=== PATIENT | female | born 1940 | race Caucasian/White ===

== ENCOUNTER 2019-07-20 13:47 | Inpatient (IN) | payer MEDICARE ==
[~2019-07-20] VITALS: Ht 154.9 cm; Wt 50.8 kg
--- NOTE | 2019-07-20 14:00 | NUR ---
Patient levy from home, c/o left hip pain trying to cathch her while falling. On room air, breathing evenly and unlabored. connected to the monitor and pulse ox. kept comfortable, will continue to monitor accordingly.
[2019-07-20] MEDS ORDERED: ONDANSETRON HCL/PF 4 MG/2 ML VIAL ONE (15:09)
[2019-07-20] MEDS ORDERED: MORPHINE SULFATE INJ 2 MG/ML DISP.SYRIN ONE (15:09)
[2019-07-20] MEDS ORDERED: ONDANSETRON HCL/PF - ER 4 MG/2 ML VIAL IV ONE (15:30)
[2019-07-20] MEDS ORDERED: MORPHINE SULFATE INJ 2 MG/ML DISP.SYRIN IV ONE (15:30)
[2019-07-20 15:43] LABS: BASOPHILS % (AUTO) 0.5 % (0.0-2.0); EOSINOPHILS % (AUTO) 0.3 % (0.0-6.0); HEMATOCRIT 42 % (33-45); LYMPHOCYTES # (AUTO) 0.9 /CMM (0.8-4.8); LYMPHOCYTES % (AUTO) 9.6 % (20.0-44.0); MEAN CORPUSCULAR HGB CONC 34 g/dl (31.0-36.0); MEAN CORPUSCULAR VOLUME 99 fL (82-100); MONOCYTES # (AUTO) 0.6 /CMM (0.1-1.30); MONOCYTES % (AUTO) 6.8 % (2.0-12.0); NEUTROPHILS # (AUTO) 7.8 /CMM (1.8-8.9); NEUTROPHILS % (AUTO) 82.8 % (43.0-81.0); PLATELET COUNT (AUTO) 237 /CMM (150-450); RED BLOOD CELL COUNT(AUTO) 4.24 MIL/uL (4.0-5.2); WHITE BLOOD COUNT (AUTO) 9.4 K/uL (4.3-11.0)
[2019-07-20 15:49] LABS: CALCIUM, SERUM 8.7 mg/dL (8.5-10.1); CREATININE 1.1 mg/dL (0.6-1.3); POTASSIUM 4.2 mmol/L (3.5-5.1)
--- NOTE | 2019-07-20 15:53 | NUR ---
CALLED [facility]TE [facility] PAGED MATERIAL HANDLER FOR CONSULT
--- NOTE | 2019-07-20 17:36 | NUR ---
Wheeled patient via gurney accompanied by RN and emt in no distress. RN at bedside to assume care.
[2019-07-20 17:50] VITALS: BP 167/87
--- NOTE | 2019-07-20 17:50 | NUR ---
Received patient via [employer]. Awake alet and oriented x4, pleasant. Admitted to MS l hip fracture. Patient oriented to room and educated to use call light. Noted with L arm skin tear covered with Kerlix. Patient refused picture at this time, afraid of bleeding. Patient needs F/C for comfor. Possible surgeryy tomorrow. NPO after midnight . Dinner provided. Pain medication given. IV line LAC , flushing well. Will endorse to next shift for RONALDO.
[2019-07-20] MEDS: MORPHINE SULFATE INJ 2 MG/ML DISP.SYRIN IV PRN ×2 (17:55→21:53)
[2019-07-20] MEDS ORDERED: ACETAMINOPHEN 325 MG TABLET PO PRN (18:00)
[2019-07-20] MEDS ORDERED: MAGNESIUM HYDROXIDE 30 ML UDC PO PRN (18:00)
[2019-07-20] MEDS ORDERED: ONDANSETRON HCL/PF 4 MG/2 ML VIAL IVP PRN (18:00)
[2019-07-20] MEDS ORDERED: Z GUARD REMEDY 2 OZ OINT TP PRN (18:00)
[2019-07-20] MEDS ORDERED: MAG HYDROX/AL HYDROX/SIMETH 30 ML UDC PO PRN (18:00)
--- NOTE | 2019-07-20 19:40 | NUR ---
MS RN OPENING NOTES RECEIVED PATIENT FROM MORNING SHIFT, ALERT AND ORIENTED X 3. VERBALLY RESPONSIVE AND ABLE TO FOLLOW DIRECTIONS. BREATHING REGULAR AND UNLABORED ON ROOM AIR. RIGHT AC G18 IV LINE INTACT AND PATENT, FLUSHING WELL WITH NO BLEEDING OR S/S OF INFILTRATION NOTED. DENIES SUICIDAL/HOMICIDAL IDEATION. COMPLAINED OF PAIN WHEN MOVING THE HIPS, NON-PHARMACOLOGICAL INTERVENTIONS PROVIDED. POSITION ON THE SIDE OF COMFORT. BED LOW AND LOCKED ON SEMI FOWLERS POSITION. CALL LIGHT IN REACH. WILL CONTINUE TO MONITOR.
[2019-07-20 20:00] VITALS: BP 137/68
[2019-07-20] MEDS ORDERED: AMLO2.5T4 PO (20:11)
[2019-07-20] MEDS ORDERED: ADAL40PE SQ (20:11)
[2019-07-20] MEDS ORDERED: AZAT50TA18 PO (20:11)
[2019-07-20] MEDS ORDERED: METH1TAB PO (20:11)
[2019-07-20] MEDS ORDERED: TRAV5DRO LEFTEYE (20:23)
[2019-07-20] MEDS ORDERED: ESTR10TA4 VG (20:23)
[2019-07-20] MEDS ORDERED: PRED5TAB PO (20:23)
[2019-07-20] MEDS ORDERED: BRIM5DRO2 OP (20:23)
--- NOTE | 2019-07-20 22:00 | NUR ---
MS RN NOTES COMPLAINED OF 9/10 LEFT HIP PAIN, MORPHINE 2MG GIVEN VIA IV PUSH. NON-PHARMACOLOGICAL INTERVENTIONS PROVIDED. VITAL SIGNS WNL. WILL CONTINUE TO MONITOR.
[2019-07-21] MEDS: IV D5/ 0.9% NACL 1,000 ML IV PRN (01:53)
[2019-07-21] MEDS: MORPHINE SULFATE INJ 2 MG/ML DISP.SYRIN IV PRN ×5 (01:53→22:49)
--- NOTE | 2019-07-21 06:25 | NUR ---
MS RN CLOSING NOTES PATIENT IN BED, ALERT AND ORIENTED X 3. AFEBRILE WITH NO S/S OF DISTRESS OBSERVED. RIGHT AC G18 IV LINE PATENT AND INFUSING WELL. COMPLAINED OF PAIN 9/10 LEFT HIP PAIN, NON-PHARMACOLOGICAL INTERVENTIONS PROVIDED. MORPHINE 2MG GIVEN VIA IV PUSH. BEE CATH INTACT DRAINING CLEAR YELLOW URINE 425CC OUTPUT. BED LOW AND LOCKED ON SEMI FOWLERS POSITION. CALL LIGHT IN REACH. WILL ENDORSE TO MORNING SHIFT FOR RONALDO.
--- NOTE | 2019-07-21 07:30 | NUR ---
MS RN RECEIVED ON BED,AWAKE,ALERT,ORIENTED X4,LEFT HIP FRACTURE,DENIESPAINAT THIS TIME, WILL MONITOR PATIENT.
[2019-07-21 07:57] LABS: BASOPHILS % (AUTO) 0.3 % (0.0-2.0); EOSINOPHILS % (AUTO) 0.5 % (0.0-6.0); HEMATOCRIT 39 % (33-45); HEMOGLOBIN 13.1 g/dL (11.5-14.8); LYMPHOCYTES # (AUTO) 1.4 /CMM (0.8-4.8); LYMPHOCYTES % (AUTO) 14.1 % (20.0-44.0); MEAN CORPUSCULAR HGB CONC 34 g/dl (31.0-36.0); MEAN CORPUSCULAR VOLUME 98 fL (82-100); MONOCYTES # (AUTO) 1.1 /CMM (0.1-1.30); MONOCYTES % (AUTO) 11.1 % (2.0-12.0); NEUTROPHILS # (AUTO) 7.4 /CMM (1.8-8.9); PLATELET COUNT (AUTO) 202 /CMM (150-450); RED BLOOD CELL COUNT(AUTO) 3.95 MIL/uL (4.0-5.2)
[2019-07-21 08:17] VITALS: BP 160/85
[2019-07-21 08:28] LABS: CALCIUM, SERUM 8.4 mg/dL (8.5-10.1); CREATININE 0.8 mg/dL (0.6-1.3); MAGNESIUM 2.1 mg/dL (1.8-2.4); PHOSPHORUS 3.2 mg/dL (2.5-4.9); POTASSIUM 3.7 mmol/L (3.5-5.1)
[2019-07-21 08:51] LABS: APPEARANCE,URINE SL CLOUDY (CLEAR); BILIRUBIN,URINE NEGATIVE (NEGATIVE); BLOOD, URINE TRACE Ery/uL (NEGATIVE); COLOR,URINE YELLOW (YELLOW); KETONES,URINE NEGATIVE (NEGATIVE); LEUKOCYTE ESTERASE ,URINE NEGATIVE (NEGATIVE); NITRITE, URINE NEGATIVE (NEGATIVE); PH,URINE 7.5 (5.0-8.0); PROTEIN,URINE NEGATIVE (NEGATIVE); UGLUCOSE NEGATIVE (NEGATIVE); UROBILINOGEN,URINE 0.2 EU/dL (0.2)
[2019-07-21 09:00] LABS: BACTERIA,URINE Few /HPF (None Seen); SQUAMOUS EPITHELIAL CELL,UR Many /HPF (None Seen)
[2019-07-21] MEDS ORDERED: Medication Not On Formulary EA (Brimonidine Tartrate/Timolol (Combigan Eye Drops) 5 ML) OP SCH (09:00)
--- NOTE | 2019-07-21 09:00 | NUR ---
MS NR NPO at this time, due meds given,tolerated well.
[2019-07-21 09:01] LABS: RBC,URINE 0-2 /HPF (0-2); URINE AMORPHOUS URATE Moderate /HPF (None Seen); WBC,URINE 0-2 /HPF (0-3)
[2019-07-21 09:02] LABS: MUCUS,URINE Many /LPF (None Seen)
[2019-07-21] MEDS: AZATHIOPRINE 50 MG TABLET PO SCH (09:30)
[2019-07-21] MEDS: predniSONE 5 MG TABLET PO SCH (09:30)
[2019-07-21] MEDS: AMLODIPINE BESYLATE 2.5 MG TABLET PO SCH (09:30)
--- NOTE | 2019-07-21 10:20 | NUR ---
ms rn gave morphine 2mg for pain 10/24, but accidentally trew the label,was not able to scan it.
--- NOTE | 2019-07-21 11:00 | NUR ---
ms rn called aldair to evaluate pt,will let patient eat,will have sx in am.
[2019-07-21 16:02] VITALS: BP 133/59
[2019-07-21] MEDS: TIMOLOL 0.5% SOLN OPHTH 5 ML BOTTLE OP SCH (18:00)
[2019-07-21] MEDS: BRIMONIDINE TARTRATE OPHT SOLN 5 ML BOTTLE OP SCH (18:00)
[2019-07-21] MEDS ORDERED: METHENAMINE MANDELATE 1 GM TABLET PO SCH (18:30)
--- NOTE | 2019-07-21 18:30 | NUR ---
ms rn on bed, no distress noted,was seen by aldair today.
--- NOTE | 2019-07-21 19:45 | NUR ---
RN OPEN NOTES PATIENT IS LAYING IN BED. BED IS IN LOWEST LOCKED POSITION WITH SIDE RAILS UP, SEMI FOWLERS. NO SOB/ ACUTE RESPIRATORY DISTRESS NOTED. NO COMPLAINTS OF PAIN AT THE MOMENT. CALL LIGHT IS WITHIN REACH. WILL CONTINUE TO MONITOR.
[2019-07-21 20:00] VITALS: BP 163/84
[2019-07-21] MEDS: LATANOPROST EYE DROP 0.005% 2.5 ML BOTTLE LEFTEYE SCH (21:02)
[2019-07-22] MEDS: MORPHINE SULFATE INJ 2 MG/ML DISP.SYRIN IV PRN ×3 (03:43→20:04)
[2019-07-22 05:27] VITALS: BP 146/80
[2019-07-22 06:23] LABS: BASOPHILS % (AUTO) 0.4 % (0.0-2.0); EOSINOPHILS % (AUTO) 1.3 % (0.0-6.0); HEMATOCRIT 38 % (33-45); LYMPHOCYTES # (AUTO) 1.8 /CMM (0.8-4.8); LYMPHOCYTES % (AUTO) 19.4 % (20.0-44.0); MEAN CORPUSCULAR HGB CONC 34 g/dl (31.0-36.0); MEAN CORPUSCULAR VOLUME 98 fL (82-100); MONOCYTES # (AUTO) 1.1 /CMM (0.1-1.30); MONOCYTES % (AUTO) 11.8 % (2.0-12.0); NEUTROPHILS # (AUTO) 6.3 /CMM (1.8-8.9); NEUTROPHILS % (AUTO) 67.1 % (43.0-81.0); PLATELET COUNT (AUTO) 180 /CMM (150-450); RED BLOOD CELL COUNT(AUTO) 3.86 MIL/uL (4.0-5.2); WHITE BLOOD COUNT (AUTO) 9.4 K/uL (4.3-11.0)
--- NOTE | 2019-07-22 06:56 | NUR ---
RN CLOSE NOTES PATIENT IS WATCHING TV IN BED AWAITING FOR PICK FOR OR. ON RA SATURATING AT 95%. NO SOB/ ACUTE RESPIRATORY DISTRESS NOTED. CALL LIGHT IS WITHIN REACH. BED IS IN LOWEST POSITION WITH SIDE RAILS UP, SEMI FOWLERS. ALL DUE MEDS GIVEN.
[2019-07-22 06:59] LABS: ALBUMIN 2.9 g/dL (3.4-5.0); BILIRUBIN,TOTAL 0.7 mg/dL (0.2-1.0); CREATININE 0.6 mg/dL (0.6-1.3); MAGNESIUM 1.9 mg/dL (1.8-2.4); PHOSPHORUS 2.6 mg/dL (2.5-4.9); POTASSIUM 3.5 mmol/L (3.5-5.1); TOTAL PROTEIN, SERUM 6.5 g/dL (6.4-8.2)
[2019-07-22] MEDS ORDERED: MIDAZOLAM HCL 2 MG/2ML VIAL ONE (07:04)
[2019-07-22] MEDS ORDERED: FENTANYL PF 250MCG/5ML AMPUL ONE (07:04)
[2019-07-22] MEDS ORDERED: methylPREDNISolone SOD SUCC 125 MG/2ML VIAL ONE (07:05)
[2019-07-22] MEDS ORDERED: FAMOTIDINE/PF INJ 20 MG/2 ML VIAL IV ONE (07:05)
[2019-07-22] MEDS ORDERED: BUPIVACAINE 0.5 % PF 150 MG/30 ML VIAL ONE (07:08)
[2019-07-22] MEDS ORDERED: ANESTHESIA TRAY IN PYXIS 1 EA TRAY MC ONE (07:08)
[2019-07-22] MEDS ORDERED: BACITRACIN 50000 UNITS/VIAL ONE (07:09)
[2019-07-22] MEDS ORDERED: CLINDAMYCIN 900 MG/6 ML VIAL ONE (07:35)
--- NOTE | 2019-07-22 08:00 | NUR ---
MS RN OPENING NOTES UPON ROUNDS, PT NOT IN THE ROOM SHE IS OUT TO THE OR FOR THE SURGERY. RECEIVED REPORT FROM NIGHT NURSE. AWAITING FOR PT TO COME BACK TO THE FLOOR.
[2019-07-22] MEDS: predniSONE 5 MG TABLET PO SCH (09:00)
[2019-07-22] MEDS: AZATHIOPRINE 50 MG TABLET PO SCH (09:00)
[2019-07-22] MEDS: AMLODIPINE BESYLATE 2.5 MG TABLET PO SCH (09:00)
[2019-07-22] MEDS: BRIMONIDINE TARTRATE OPHT SOLN 5 ML BOTTLE OP SCH (10:00)
[2019-07-22] MEDS: TIMOLOL 0.5% SOLN OPHTH 5 ML BOTTLE OP SCH (10:00)
--- NOTE | 2019-07-22 10:00 | NUR ---
BACK FROM SURGERY PT BACK FROM SURGERY S/P L HIP INTERMEDULLARY RODDING WITH DR. CHUENG. PT BROUGHT IN BY OR NURSE. PT IS AWAKE AND AOX4. NO CARDIAC OR RESP DISTRESS NOTED. RESPONDING TO QUESTIONS WELL. DRESSING NOTED ON L HIP AND L THOIGH. NO BLEEDING NOTED. DRESSING INTACT. PER DR. CHEUNG OKAY TO RESUME PREVIOUS PRE-OP ORDERS. WBAT WITH PT. PT WILL ALSO START ON LOVENOX AND CLINDAMYCIN. MED ORDERS FAXED TO PHARMACY BY OR NURSE. VS CHECKED T-97.6, P- 92, RR- 18, BP- 149/79, O2 SAT- 97% ON ROOM AIR. PT DENIES ANY PAIN OR DISCOMFORT AT THIS TIME.
[2019-07-22 16:00] VITALS: BP 104/40
[2019-07-22] MEDS: IV D5/ 0.9% NACL 1,000 ML IV PRN (16:58)
--- NOTE | 2019-07-22 19:30 | NUR ---
MS RN OPENING NOTE RECEIVED PATIENT IN BED. A/OX4. TOLERATING ROOM AIR, RESPIRATIONS ARE EVEN AND UNLABORED. NO S/S SOB NOTED. C/O OF PAIN IN LEFT HIP WILL ADMINISTER PAIN MEDICATION SOON RECEIVED REPORT, PATIENT AWARE. IN NO APPARENT DISTRESS. IV ACCESS IN RAC#18 RUNNING D5NS@75ML/HR. BEE CATHETER IS PRESENT, DRAINING TO GRAVITY, URINE IS YELLOW AND CLEAR. BED IS LOW AND LOCKED, HOB ELEVATED IN SEMI FOWLERS, SIDE RIALS UP X2, CALL LIGHT WITHIN REACH. WILL CONTINUE TO MONITOR.
--- NOTE | 2019-07-22 19:30 | NUR ---
MS RN CLOSING NOTES PT IN BED AWAKE AND AOX4. NO CARDIAC OR RESP DISTRESS NOTED. NO COMPLAINTS OF PAIN OR DISCOMFORT AT THIS TIME. DRESSING NOTED ON L HIP AND L THIGH. STILL NO BLEEDING NOTED. DRESSING INTACT. IV ACCESS NOTED ON R AC INTACT AND PATENT. FLUSHING WELL. SAFETY PRECAUTIONS IN PLACE. BED LOCKED AND IN LOW POSITION. SIDE RAILS UP. BED ALARM ON.
[2019-07-22 20:00] VITALS: BP 132/69
[2019-07-22] MEDS: CLINDAMYCIN 900 MG in IV D5W 50 ML IV SCH (20:03)
--- NOTE | 2019-07-22 20:14 | NUR ---
MS RN NOTE ADMINISTERED PRN MORPHINE 2MG FOR PAIN 8/10 IN LEFT HIP. WILL CONTINUE TO MONITOR.
[2019-07-22] MEDS: LATANOPROST EYE DROP 0.005% 2.5 ML BOTTLE LEFTEYE SCH (21:31)
--- NOTE | 2019-07-22 22:40 | NUR ---
MS RN NOTE CALLED FRONT DESK AUXILIARY MD CHET MOORE TO INFORM HIM THAT PATIENT WANTS TO CONTINUE TAKING HER ZOLOFT 50MG DAILY. IT WAS NOT REPORTED ON MED RECON AND SHE HAS NOT TAKEN IT SINCE FRIDAY. REQUESTING AN ORDER TO CONTINUE. TELEPHONE ORDER ZOLOFT 50MG DAILY. ORDER READ BACK, NOTED AND CARRIED OUT.
[2019-07-23] MEDS: ZOLPIDEM TARTRATE 5 MG TABLET PO PRN ×2 (00:09→22:55)
--- NOTE | 2019-07-23 00:09 | NUR ---
MS RN NOTE ADMINISTERED PRN AMBIEN 5MG PER PATIENT REQUEST FOR SLEEP. WILL CONTINUE TO MONITOR.
[2019-07-23 06:17] LABS: BASOPHILS % (AUTO) 0.1 % (0.0-2.0); HEMATOCRIT 35 % (33-45); HEMOGLOBIN 11.7 g/dL (11.5-14.8); LYMPHOCYTES # (AUTO) 0.9 /CMM (0.8-4.8); LYMPHOCYTES % (AUTO) 7.5 % (20.0-44.0); MEAN CORPUSCULAR HGB CONC 33 g/dl (31.0-36.0); MEAN CORPUSCULAR VOLUME 100 fL (82-100); MONOCYTES # (AUTO) 1.3 /CMM (0.1-1.30); MONOCYTES % (AUTO) 11.1 % (2.0-12.0); NEUTROPHILS # (AUTO) 9.5 /CMM (1.8-8.9); NEUTROPHILS % (AUTO) 81.3 % (43.0-81.0); PLATELET COUNT (AUTO) 191 /CMM (150-450); RED BLOOD CELL COUNT(AUTO) 3.52 MIL/uL (4.0-5.2); WHITE BLOOD COUNT (AUTO) 11.7 K/uL (4.3-11.0)
--- NOTE | 2019-07-23 06:37 | NUR ---
MS RN CLOSING NOTE PATIENT IN BED. A/OX4. REMAINS TOLERATING ROOM AIR, RESPIRATIONS ARE EVEN AND UNLABORED. NO SOB NOTED. MORPHINE ADMNISTERED TO MANAGE PAIN. NO DISTRESS NOTED. IV ACCESS MAINTAINED IN RAC#18 RUNNING D5NS@75ML/HR. BEE CATHETER IS PRESENT, DRAINING TO GRAVITY, URINE IS YELLOW AND CLEAR OUTPUT 500. BED REMAINS LOW AND LOCKED, HOB ELEVATED IN SEMI FOWLERS, SIDE RIALS UP X2, CALL LIGHT WITHIN REACH. WILL ENDORSE TO NEXT SHIFT.
[2019-07-23 06:42] LABS: CALCIUM, SERUM 8.5 mg/dL (8.5-10.1); CREATININE 0.7 mg/dL (0.6-1.3); POTASSIUM 3.6 mmol/L (3.5-5.1)
[2019-07-23 08:00] VITALS: BP 155/87
[2019-07-23] MEDS: IV D5/ 0.9% NACL 1,000 ML IV PRN (08:39)
[2019-07-23] MEDS: BRIMONIDINE TARTRATE OPHT SOLN 5 ML BOTTLE OP SCH (08:40)
[2019-07-23] MEDS: CLINDAMYCIN 900 MG in IV D5W 50 ML IV SCH (08:40)
[2019-07-23] MEDS: ENOXAPARIN SODIUM 40 MG/0.4 ML DISP.SYRIN SQ SCH (08:40)
[2019-07-23] MEDS: TIMOLOL 0.5% SOLN OPHTH 5 ML BOTTLE OP SCH (08:41)
[2019-07-23] MEDS: AZATHIOPRINE 50 MG TABLET PO SCH (08:41)
[2019-07-23] MEDS: AMLODIPINE BESYLATE 2.5 MG TABLET PO SCH (08:41)
[2019-07-23] MEDS: SERTRALINE HCL 50 MG TABLET PO SCH (08:41)
[2019-07-23] MEDS: predniSONE 5 MG TABLET PO SCH (08:43)
[2019-07-23] MEDS: HYDROCODONE/APAP 5/325MG 1 EACH TABLET PO PRN ×2 (09:45→20:20)
[2019-07-23 16:00] VITALS: BP 144/80
--- NOTE | 2019-07-23 18:46 | NUR ---
MS RN END OF SHIFT SUMMARY PT IS A/O X4, AFEBRILE. NON-MONITORED, VSS. TOLERATING RA. RESPIRATIONS ARE EVEN AND UNLABORED, NOT IN ANY ACUTE DISTRESS NOTED. +FLATUS, NO BM DURING SHIFT. BEE REMOVED, PT IS CONTINENT, USES BC. PT EVAL DONE W/ FWW. DRESSING TO LEFT HIP INCISION KEPT CDI. SCDS IN PLACE. ALL NEEDS MET AND RENDERED. SAFETY MEASURES ARE IN PLACE. CALL LIGHT IS LEFT WITHIN REACH. WILL MONITOR AND CONTINUE POC.
[2019-07-23 20:00] VITALS: BP 160/81
--- NOTE | 2019-07-23 20:00 | NUR ---
MS/RN OPENING NOTES RECEIVED PATIENT IN BED, AWAKE, ALERT AND ABLE TO VERBALIZE NEEDS, ON ROOM AIR WITH RESPIRATIONS EVEN AND UNLABORED. REPORTED AND VERBALIZED PAIN OF 7/10 IN LEFT HIP, NORCO 5-325 MG PO NEEDED MEDICATION AND REPORTED NO BM FOR THE PAST 3 DAYS . MOM WILL BE GIVEN FOR CONSTIPATION, DISCUSSED EYE DROPS MEDICATION AND LATANPROST TO BE GIVEN TONIGHT. BED LOCKED,CALL LIGTHS WITHIN REACH.PROVIDED FLUIDS. WILL MONITOR. IV ACCESS RIGHT AC HEPLOCK.
[2019-07-23] MEDS: LATANOPROST EYE DROP 0.005% 2.5 ML BOTTLE LEFTEYE SCH (22:00)
--- NOTE | 2019-07-23 23:05 | NUR ---
MS/RN NOTES PATIENT REPORTED UNABLE TO SLEEP AND REQUESTED MEDICATION AMBIEN 5 MG , TO MONITOR SLEEP EFFECTIVENESS.
--- NOTE | 2019-07-24 00:12 | NUR ---
MS/RN NOTES PATIENT REQUESTED MEDICATION TO HELP HER RELAX, NEEDED XANAX GIVEN BY MOUTH. PATIENT TOLERATED WITH WATER. HOB ELEVATED, ABLE TO SWALLOW.
--- NOTE | 2019-07-24 06:32 | NUR ---
MS/RN CLOSING NOTES PATIENT ABLE TO SLEEP DURING THE NIGHT, ALERT , ORIENTED X3, ABLE TO VERBALIZE NEEDS. ATTENDED TO ALL NEEDS, COMPLIANT TO MEDICATION. ON PAIN MANAGEMENT MONITORING AND WITH RELIEF. SELF MOTIVATED. BED LOCKED CALL LIGHTS WITHIN REACH. WILL MONITOR. WILL ENDORSE TO AM RN FOR RONALDO.
[2019-07-24] MEDS ORDERED: ENOX40DI SQ (07:37)
--- NOTE | 2019-07-24 08:00 | NUR ---
MS RN OPENING NOTES RECEIVED PATIENT IN BED, AWAKE, CONSCIOUS, COOPERATIVE, A/O X4, BREATHING AT ROOM AIR, NO SIGNS OF RESPIRATORY DISTRESS, RAC 18G SL, S/P LEFT FRUCTURE, SIDE RAILS UP FOR SAFETY.
[2019-07-24] MEDS: SERTRALINE HCL 50 MG TABLET PO SCH (08:29)
[2019-07-24 08:30] VITALS: BP 143/87
[2019-07-24] MEDS: AZATHIOPRINE 50 MG TABLET PO SCH (08:30)
[2019-07-24] MEDS: AMLODIPINE BESYLATE 2.5 MG TABLET PO SCH (08:30)
[2019-07-24] MEDS: BRIMONIDINE TARTRATE OPHT SOLN 5 ML BOTTLE OP SCH (08:32)
[2019-07-24] MEDS: TIMOLOL 0.5% SOLN OPHTH 5 ML BOTTLE OP SCH (08:32)
[2019-07-24] MEDS: predniSONE 5 MG TABLET PO SCH (08:40)
[2019-07-24] MEDS: ENOXAPARIN SODIUM 40 MG/0.4 ML DISP.SYRIN SQ SCH (08:41)
[2019-07-24] MEDS: HYDROCODONE/APAP 5/325MG 1 EACH TABLET PO PRN (11:02)
[2019-07-24] MEDS ORDERED: LORAZEPAM 0.5 MG TABLET PO ONE (12:00)
--- NOTE | 2019-07-24 15:45 | NUR ---
MS RN NOTES DISCHARGED PATIENT VIA AMBULANCE, IN STRETCHER, AWAKE, COOPERATIVE, CONSCIOUS, BREATHING AT ROOM AIR, NO SIGNS OF RESPIRATORY DISTRESS, LEFT ARM WITH DRY WOUNDS COVERED WITH GAUZE, LEFT HIP FRACTURE, S/P IM RODDING, NO SIGNS OR PRESENCE OF BLEEDING.
== END 2019-07-24 15:35 | DRG 481 ==
LOC: ER 13:49 → MED 16:49
PROVIDERS: ADMIT Family Medicine; ATTEND Family Medicine
PROC: 0QS706Z Reposition Left Upper Femur with Intramedullary Internal Fixation Device, Open Approach (ICD-10-PCS; principal; 2019-07-22)
DX: S72.142A Displaced intertrochanteric fracture of left femur, initial encounter for closed fracture (principal); K51.90 Ulcerative colitis, unspecified, without complications; E44.0 Moderate protein-calorie malnutrition; W18.30XA Fall on same level, unspecified, initial encounter; Y92.9 Unspecified place or not applicable; I10 Essential (primary) hypertension; R73.9 Hyperglycemia, unspecified; M19.90 Unspecified osteoarthritis, unspecified site; I48.0 Paroxysmal atrial fibrillation; Z88.1 Allergy status to other antibiotic agents; Z98.890 Other specified postprocedural states; Z87.891 Personal history of nicotine dependence; Z90.710 Acquired absence of both cervix and uterus; Z80.1 Family history of malignant neoplasm of trachea, bronchus and lung; Z80.8 Family history of malignant neoplasm of other organs or systems; Z79.899 Other long term (current) drug therapy; F43.9 Reaction to severe stress, unspecified; M06.9 Rheumatoid arthritis, unspecified
CPT/HCPCS: 36415; 71045-TC; 73020; 73502; 80048-TC; 80053-TC; 80061-TC; 81000-TC; 82962-TC; 83735-TC; 84100-TC; 85025-TC; 85730-TC; 86850-TC; 87081-TC; 93307-TC; 97110-TC; 97116-TC; 97530-TC; A6209; C1713; G0378; J1650; J2250; J2270; J2405; J2704; J2765; J2930; J3010; J3490; J7042; J7060; J7500; J7512

== ENCOUNTER 2021-08-04 15:07 | Inpatient (IN) | payer MEDICARE, BC ==
[~2021-08-04] VITALS: Ht 152.4 cm; Wt 62.6 kg
[~2021-08-04 15:07] MED LIST: ADAL40PE SQ; AMLO2.5T4 PO; AZAT50TA18 PO; BRIM5DRO2 LEFTEYE; ENOX40DI SQ; ESTR10TA4 VG; METH1TAB PO; PRED5TAB PO; TRAV5DRO11 LEFTEYE
--- NOTE | 2021-08-04 15:07 | NUR ---
PT BIBRA 89 C/O L HIP PAIN S/P TRIP AND FALL. PT DENIES HEADINJURY OR LOC. PT IS AAOX4, NOT IN RESPIRATORY DISTRESS, V/S STABLE, KEPT RESTED AND COMFORTABLE. WILL CONTINUE TO MONITOR.
--- NOTE | 2021-08-04 15:10 | NUR ---
BIBRA 89 C/O L HIP PAIN S/P TRIP AND FALL. PT DENIES HEADINJURY OR LOC. PATIENT HAS Hx Sx OF LEFT FEMUR TITANIUM PLATE 2 YEARS AGO. PATIENT IS EXPERIENCING PAIN IN LEFT LEG AND INGUINAL AREA. PLACED COMFORTABLY IN BED. VITALS CHECKED.
[2021-08-04] MEDS ORDERED: HYDROCODONE/APAP 5/325MG TABLET PO ONE (16:00)
[2021-08-04] MEDS ORDERED: HYDROCODONE/APAP 5/325MG TABLET ONE (16:05)
--- NOTE | 2021-08-04 16:33 | NUR ---
XRAY DONE AT BEDSIDE.
[2021-08-04 17:30] LABS: BASOPHILS % (AUTO) 0.2 % (0.0-2.0); EOSINOPHILS % (AUTO) 0.5 % (0.0-6.0); HEMATOCRIT 41 % (33-45); HEMOGLOBIN 13.6 g/dL (11.5-14.8); LYMPHOCYTES # (AUTO) 0.8 K/uL (0.8-4.8); LYMPHOCYTES % (AUTO) 6.1 % (20.0-44.0); MEAN CORPUSCULAR HGB CONC 33 g/dl (31.0-36.0); MEAN CORPUSCULAR VOLUME 93 fL (82-100); MONOCYTES # (AUTO) 0.7 K/uL (0.1-1.30); MONOCYTES % (AUTO) 5.3 % (2.0-12.0); NEUTROPHILS % (AUTO) 87.9 % (43.0-81.0); PLATELET COUNT (AUTO) 218 K/uL (150-450); RED BLOOD CELL COUNT(AUTO) 4.43 MIL/uL (4.0-5.2); WHITE BLOOD COUNT (AUTO) 13.7 K/uL (4.3-11.0)
[2021-08-04 17:55] LABS: CALCIUM, SERUM 8.9 mg/dL (8.5-10.1); CREATININE 0.8 mg/dL (0.6-1.3)
--- NOTE | 2021-08-04 18:09 | NUR ---
COVID SWAB SENT TO LAB
[2021-08-04] MEDS ORDERED: ONDANSETRON HCL/PF 4 MG/2 ML VIAL IVP ONE (18:30)
[2021-08-04] MEDS ORDERED: MORPHINE SULFATE INJ 2 MG/ML DISP.SYRIN IV ONE (18:30)
[2021-08-04] MEDS ORDERED: ONDANSETRON HCL/PF 4 MG/2 ML VIAL ONE (19:07)
[2021-08-04] MEDS ORDERED: MORPHINE SULFATE INJ 4 MG/ML DISP.SYRIN ONE (19:08)
--- NOTE | 2021-08-04 19:30 | NUR ---
IV CANNULA G20 ON LEFT FA INSERTED. PAIN MEDS GIVEN
--- NOTE | 2021-08-04 19:37 | NUR ---
TRIED TO GIVE REPORT FOR RN IN 311... NOT PICKING UP
--- NOTE | 2021-08-04 20:02 | NUR ---
REPORT GIVEN TO JACKIE BAIN. PATIENT CAN GO UP ANYTIME.
[2021-08-04 20:20] VITALS: BP 142/78
--- NOTE | 2021-08-04 20:30 | NUR ---
MS PLATE SHEAR OPERATOR NOTE PATIENT ADMITTED AFTER GROUND LEVEL FALL, LEFT HIP PAIN. PATIENT ALERT/ORIENTED X 4, PT ABLE TO MAKE NEEDS KNOWN. PT STABLE ON RA, NO S/S OF DISTRESS OR SOB NOTED, BREATHING EVEN AND UNLABORED. IV ACCESS ON LEFT FOREARM #20G INTACT AND FLUSHING WELL. PATIENT LIVES AT HOME WITH 91 YO . PATIENT FULLY VACCINATED FOR COVID + 2 BOOSTERS, LATEST BOOSTER WAS PFEIZER ON MAY 2021. PATIENT VACCINATED FOR FLU ON MAR 2021 AND PNEUMONIA BUT DOESN'T REMEMBER DATE. UNABLE TO ASSESS SKIN ON BACKSIDE BECAUSE IT IS TOO PAINFUL FOR PATIENT TO TURN COMPLETELY, FRONT SIDE SKIN INTACT, NO REDNESS NOTED. PATIENT WAS GIVEN MORPHINE IN ER PRIOR TO ADMISSION. ORIENTED PATIENT HOW TO USE REMOTE AND CALL LIGHT. SAFETY MEASURES IN PLACE : CALL LIGHT WITHIN REACH, SIDE RAILS UP X 2, BED LOCKED IN LOWEST POSITION, BED ALARM ON. WILL CONTINUE PLAN OF CARE
[2021-08-04] MEDS: LATANOPROST EYE DROP 0.005% 2.5 ML BOTTLE LEFTEYE SCH (20:50)
[2021-08-04] MEDS ORDERED: ENOXAPARIN SODIUM 40 MG/0.4 ML DISP.SYRIN SQ SCH (21:00)
[2021-08-04] MEDS ORDERED: Z GUARD REMEDY 4 OZ OINT TP PRN (21:00)
[2021-08-04] MEDS ORDERED: ACETAMINOPHEN 325 MG TABLET PO PRN (21:00)
--- NOTE | 2021-08-04 21:32 | NUR ---
MS RN NOTE CONTACTED [employer] RECOVERY WORKER MD MINA ALSTON REGARDING LOVENOX, PT HERE FOR LEFT PELVIC FRACTURE, NO NOTES ON WHETHER PATIENT WILL HAVE SURGERY. PER MINA, GIVE LOVENOX TONIGHT. UNABLE TO GIVE EYE DROPS BECAUSE THEY ARE NOT AVAILABLE ON UNIT
--- NOTE | 2021-08-04 22:00 | NUR ---
MS RN NOTE DUPLICATE ORDER OF LOVENOX, ONLY GIVEN ONCE
[2021-08-04] MEDS: ENOXAPARIN SODIUM 40 MG/0.4 ML DISP.SYRIN SQ SCH (23:06)
[2021-08-04] MEDS: ONDANSETRON HCL/PF 4 MG/2 ML VIAL IVP PRN (23:35)
[2021-08-04] MEDS: MORPHINE SULFATE INJ 2 MG/ML DISP.SYRIN IV PRN (23:36)
[2021-08-05] MEDS ORDERED: MAG HYDROX/AL HYDROX/SIMETH 30 ML UDC PO PRN (03:00)
--- NOTE | 2021-08-05 03:36 | NUR ---
MS RN NOTE PATIENT C/O HEARTBURN, CONTACTED PRODUCT COORDINATOR MD WITH ORDER FOR MAALOX 30 ML Q6H PRN
[2021-08-05] MEDS: MORPHINE SULFATE INJ 2 MG/ML DISP.SYRIN IV PRN ×3 (04:00→16:23)
--- NOTE | 2021-08-05 06:44 | NUR ---
MS RN CLOSING NOTE PATIENT AWAKE IN BED, ALERT/ORIENTED X 4, PT ABLE TO MAKE NEEDS KNOWN. PT STABLE ON RA, NO S/S OF DISTRESS OR SOB NOTED, BREATHING EVEN AND UNLABORED. IV ACCESS ON LEFT FOREARM #20G INTACT AND FLUSHING WELL, SALINE LOCKED. NO SIGNIFICANT CHANGES THROUGHOUT SHIFT, MEDICATIONS GIVEN ORDERED, PT NEEDS MET THROUGHOUT SHIFT. PATIENT CONTINENT AND USES BEDPAN. DVT PUMPS ON PATIENT. SAFETY MEASURES IN PLACE: CALL LIGHT WITHIN REACH, SIDE RAILS UP X 2, BED LOCKED IN LOWEST POSITION, BED ALARM ON. WILL ENDORSE TO DAY SHIFT NURSE FOR CONTINUITY OF CARE
--- NOTE | 2021-08-05 07:00 | NUR ---
MS RN OPENING NOTE PATIENT LAYING IN BED, A/O X 4, ABLE TO MAKE NEEDS KNOWN. TOLERATING WELL ON ROOM AIR WITH NO SOB OR S/S RESPIRATORY DISTRESS. NO COMPLAINTS OF PAIN OR DISCOMFORT AT THIS TIME. L FA # 20G CLEAN, INTACT, AND FLUSHING WELL. SAFETY MEASURES IN PLACE: BED IN LOWEST LOCKED POSITION, SIDE RAILS UP X 2, CALL LIGHT WITHIN REACH. WILL CONTINUE TO MONITOR.
[2021-08-05 07:11] LABS: BASOPHILS % (AUTO) 0.4 % (0.0-2.0); EOSINOPHILS % (AUTO) 1.4 % (0.0-6.0); HEMATOCRIT 39 % (33-45); HEMOGLOBIN 13.2 g/dL (11.5-14.8); LYMPHOCYTES # (AUTO) 0.9 K/uL (0.8-4.8); LYMPHOCYTES % (AUTO) 9.5 % (20.0-44.0); MEAN CORPUSCULAR HGB CONC 34 g/dl (31.0-36.0); MEAN CORPUSCULAR VOLUME 94 fL (82-100); MONOCYTES # (AUTO) 0.7 K/uL (0.1-1.30); MONOCYTES % (AUTO) 7.7 % (2.0-12.0); NEUTROPHILS # (AUTO) 7.4 K/uL (1.8-8.9); PLATELET COUNT (AUTO) 199 K/uL (150-450); RED BLOOD CELL COUNT(AUTO) 4.19 MIL/uL (4.0-5.2); WHITE BLOOD COUNT (AUTO) 9.2 K/uL (4.3-11.0)
[2021-08-05 07:42] LABS: IRON, SERUM 41 ug/dl (50-175); TOTAL IRON BINDING CAPACITY 327 ug/dl (250-450)
[2021-08-05 07:43] LABS: ALANINE AMINOTRANSFERASE 19 U/L (12-78); ALBUMIN 3.4 g/dL (3.4-5.0); ALKALINE PHOSPHATASE 91 U/L (46-116); ASPARTATE AMINOTRANSFERASE 19 U/L (15-37); BILIRUBIN,TOTAL 0.7 mg/dL (0.2-1.0); CALCIUM, SERUM 8.3 mg/dL (8.5-10.1); CARBON DIOXIDE 28 mmol/L (21-32); CHLORIDE 103 mmol/L (98-107); CREATININE 0.8 mg/dL (0.6-1.3); GLUCOSE 110 mg/dL (74-106); MAGNESIUM 2.2 mg/dL (1.8-2.4); PHOSPHORUS 2.8 mg/dL (2.5-4.9); POTASSIUM 4.1 mmol/L (3.5-5.1); SODIUM SERUM 136 mmol/L (136-145); TOTAL PROTEIN, SERUM 7.6 g/dL (6.4-8.2); UREA NITROGEN, BLOOD 15 mg/dL (7-18)
[2021-08-05 07:49] LABS: CHOLESTEROL 205 mg/dL (<200); HDL CHOLESTEROL 62 mg/dL (40-60); LDL 123 mg/dL (0-99); THYROID STIMULATING HORMONE 5.623 uIU/mL (0.358-3.74); TRIGLYCERIDES 145 mg/dL (30-150)
[2021-08-05] MEDS: AMLODIPINE BESYLATE 2.5 MG TABLET PO SCH (08:38)
[2021-08-05] MEDS ORDERED: ALPR0.255 PO (08:53)
[2021-08-05] MEDS ORDERED: ESTR10TA VG (08:53)
[2021-08-05] MEDS ORDERED: HYDR-4279 PO (08:53)
[2021-08-05] MEDS ORDERED: CALC500T52 PO (08:53)
[2021-08-05] MEDS ORDERED: VEDO300V IV (08:53)
[2021-08-05] MEDS ORDERED: FLUT1DIS5 PO (08:53)
[2021-08-05] MEDS ORDERED: VITA1TAB56 PO (08:53)
[2021-08-05] MEDS ORDERED: SERT50TA12 PO (08:53)
[2021-08-05] MEDS ORDERED: predniSONE 5 MG TABLET PO SCH (09:00)
[2021-08-05] MEDS ORDERED: METHENAMINE MANDELATE 1 GM TABLET PO SCH (09:00)
[2021-08-05] MEDS ORDERED: AZATHIOPRINE 50 MG TABLET PO SCH (09:00)
--- NOTE | 2021-08-05 09:19 | NUR ---
MS MEJIA NOTE PATIENT COMPLAINT OF 11/24 LEFT HIP PAIN AND REQUESTING MEDICATION. PRN MORPHINE 1 MG IVP ADMINISTERED ORDERED. WILL CONTINUE TO MONITOR FOR S/S OF PAIN. Addendum: 08/05/21 at 1858 by JOSH CHACON RN MORPHINE 2 MG IVP WAS THE PRESCRIBED PAIN MEDICATION ADMINISTERED AT THIS TIME
--- NOTE | 2021-08-05 16:23 | NUR ---
MS MEJIA NOTE PATIENT COMPLAINT OF 10/24 LEFT HIP PAIN AND REQUESTING PAIN MEDICATION. PRN DILAUDED 1 MG IVP ADMINISTERED ORDERED. WILL CONTINUE TO MONITOR FOR S/S PAIN. Addendum: 08/05/21 at 1859 by JOSH CHACON RN MORPHINE 2 MG IVP WAS THE PRESCRIBED PAIN MEDICATION ADMINISTERED AT THIS TIME
[2021-08-05] MEDS: LATANOPROST EYE DROP 0.005% 2.5 ML BOTTLE LEFTEYE SCH (18:16)
--- NOTE | 2021-08-05 18:34 | NUR ---
MS RN CLOSING NOTES PATIENT LAYING IN BED, A/O X 4, ABLE TO MAKE NEEDS KNOWN. TOLERATING WELL ON ROOM AIR WITH NO SOB OR S/S RESPIRATORY DISTRESS. NO COMPLAINTS OF PAIN OR DISCOMFORT AT THIS TIME. L FA # 20G CLEAN, INTACT, AND FLUSHING WELL. SAFETY MEASURES IN PLACE: BED IN LOWEST LOCKED POSITION, SIDE RAILS UP X 2, CALL LIGHT WITHIN REACH. ALL NEEDS MET. WILL ENDORSE TO LABOR RELATIONS DIRECTOR FOR RONALDO.
--- NOTE | 2021-08-05 19:10 | NUR ---
MS/RN OPENING NOTE RECEIVED PATIENT RESTING IN BED. AWAKE, ALERT AND ORIENTED X 4. ABLE TO MAKE NEEDS KNOWN. DENIES PAIN AT THIS TIME. CONTINUES ON ROOM AIR WITH NO S/SX OF RESPIRATORY DISTRESS NOTED. IV ACCESS TO LEFT FOREARM #20G INTACT, PATENT AND SALINE LOCKED. CONTINUES ON REGULAR DIET WITH NO S/SX OF ASPIRATION/NAUSEA/VOMITING THIS SHIFT. CALL LIGHT WITHIN REACH. ASPIRATION, FALL AND SAFETY PRECAUTIONS MAINTAINED. ALL NEEDS ATTENDED TO AT THIS TIME.
[2021-08-05 20:00] VITALS: BP 131/72
[2021-08-05] MEDS: ENOXAPARIN SODIUM 40 MG/0.4 ML DISP.SYRIN SQ SCH (21:19)
--- NOTE | 2021-08-06 06:20 | NUR ---
MS/RN CLOSING NOTE PATIENT CURRENTLY SLEEPING IN BED. ALERT AND ORIENTED X 4. ABLE TO MAKE NEEDS KNOWN. DENIES PAIN AT THIS TIME. CONTINUES ON ROOM AIR WITH NO S/SX OF RESPIRATORY DISTRESS NOTED. IV ACCESS TO LEFT FOREARM #20G INTACT, PATENT AND SALINE LOCKED. CONTINUES ON REGULAR DIET WITH NO S/SX OF ASPIRATION/NAUSEA/VOMITING THIS SHIFT. CALL LIGHT WITHIN REACH. ASPIRATION, FALL AND SAFETY PRECAUTIONS MAINTAINED. WILL ENDORSE PLAN OF CARE TO ONCOMING SHIFT RN.
--- NOTE | 2021-08-06 07:22 | NUR ---
MS RN OPENING NOTE RECEIVED PT IN BED AWAKE READING NEWSPAPER. A/O X4 AND ABLE TO MAKE NEEDS KNOWN. ON RA, TOLERATING WELL. BREATHING EVEN AND UNLABORED. NOT IN ANY SIGN OF DISTRESS. IV SITE ON LFA G #20 INTACT AND PATENT. SAFETY MEASURES IN PLACE: BED IN LOWEST AND LOCKED POSITION, SIDE RAILS UPx2, CALL LIGHT WITHIN REACH. WILL CONTINUE TO MONITOR PT.
[2021-08-06 08:03] VITALS: BP_SYST 169; BP_SYST 177; BP_DIAS 77; BP_DIAS 78
[2021-08-06] MEDS: AMLODIPINE BESYLATE 2.5 MG TABLET PO SCH (08:17)
[2021-08-06] MEDS ORDERED: ALPRAZOLAM 0.25 MG TABLET PO PRN (09:00)
[2021-08-06] MEDS ORDERED: FLUTICASONE/SALMETEROL 1 DISK IH SCH (09:00)
[2021-08-06] MEDS ORDERED: Medication Not On Formulary EA (Vitamin B Complex (B Complex) 1 EACH) PO SCH (09:00)
[2021-08-06] MEDS ORDERED: ESTRADIOL 1 UNIT VG SCH (09:00)
[2021-08-06] MEDS ORDERED: SERTRALINE HCL 50 MG TABLET PO SCH (09:00)
[2021-08-06] MEDS ORDERED: CALCIUM CARBONATE (1250) 500 MG TABLET PO SCH (09:00)
[2021-08-06] MEDS ORDERED: VIT B CMPLX 3/FA/VIT C/BIOTIN 1 TAB TABLET PO SCH (09:30)
[2021-08-06] MEDS ORDERED: HYDROCODONE/APAP 5/325MG TABLET PO PRN (09:30)
[2021-08-06] MEDS ORDERED: BUDESONIDE RESPULE INH 0.5 MG/2 ML AMPUL.NEB NEB SCH (09:30)
[2021-08-06] MEDS ORDERED: POLYETHYLENE GLYCOL 3350 17 GM POWD.PACK PO SCH (11:00)
[2021-08-06] MEDS ORDERED: DOCUSATE SODIUM LIQ 100 MG/10 ML UDC PO SCH (11:00)
--- NOTE | 2021-08-06 11:20 | NUR ---
SS Note: Ballast Inspector received consult for multiple falls and high-risk discharge. Patient is a 81-year-old White female who presents to the hospital for hip fracture. Per patient, she had a fall that fractured her left hip. Patient is alert and oriented x4. Pt. reported no hx of mental health, substance abuse, suicidal ideation, or homicidal ideation. Pt. denies auditory hallucinations, visual hallucinations, paranoia, or delusions. baking factory worker explored patient's fall. Patient stated that she was going to the store with her stepdaughter and fell in the parking garage because it was dark, and she was wearing sunglasses. Her stepdaughter was there to help her up. Patient mentioned that this is not her first fall and she had many in the past where she was hospitalized. Patient lives with her [[id number] [place] [address]]. Patient stated that he cannot take care of her anymore because he is older and needs caring for himself, they do not have caregivers. Per patient, daughter comes and visit once a week. Patient is ambulatory but uses a cane as needed. Plan: Per special education case manager note, discharge planning will be either home with home health or to an ARU if patient is agreeable. baking factory worker is making a report due to care provider required and self-neglect. APS Report #[id number] Resources Provided: ABUSE PREVENTION: ELDER ABUSE HOTLINE (07/10) ADULT PROTECTIVE SERVICES HOTLINE LONG-TERM CARE [facility] Region AREA ON AGING (HOTLINE) ADULT DAY HEALTH CARE CARE CENTERS: Private pay or Medi-ana funded adult day care [place] [facility] [place] [facility] [place] , [facility] Services , [facility] Adult [facility] , [facility] Adult [facility] Care , [facility] Adult Day Health Care , [facility] , [facility] , [facility] Adult Center , [place] ALZHEIMERS DISEASE/DEMENTIA: Alzheimers Association Helpline [facility] Chapter www.alz.org/[facility] Department of Aging www.lacity.org Family Caregiver [place] www.caregiver.org [place] Caregiver Resources Center/Family Support www.losangelesst.[facility].org CANCER RESOURCES: [place] Cancer Society www.cancer.org Cancer Support Community www.CancerSupportVvsb.org: CancerCare www.cancercare.org [facility] Cancer Support Center www.[facility].org [facility] HEALTH ASSOCIATIONS: AARP www.aarp.org ALS Association (ask for Kaylin) www.als.org Scottish Diabetes Association www.diabetes.org Scottish Heart Association www.heart.org Scottish Lung Association www.lungusa.org Scottish Parkinson Disease Association www.apdaparkinson.org [place] , www.redcross.org Arthritis Foundation www.arthritis.org Crohns & Colitis Foundation of [place] www.ccfa.org/chapters/jarad National Multiple Sclerosis Society www.nationalmssociety.org Myasthenia Gravis Foundation www.myasthenia-ca.org National Stroke Association www.stroke.org CONSERVATORSHIP & GUARDIANSHIP: AARP Francheska Griffin Legal Services Center for Health Care Rights [facility]ercare Information and Referral Pug Mill Operator Foundation [facility]: [facility] Bar Referral Service [facility] Legal Services Office of the Public Guardian [place] EYESIGHT DISORDER RESOURCES: [place] Macular Degeneration Foundation [facility] www.[facility].org GRIEF AND BEREAVEMENT RESOURCES: The [place] , [facility] THE HOPE Connection , [facility] Bereavement Center , [place] HEARING DISORDER RESOURCES: [place] Telephone Access Program Deaf and Disabled Telecommunications Program www.ddtp.[facility].ca.gov HearRx Hearing Centers ([place]) Better Hearing Systems , [place] GLAD ([facility] Agency on Deafness) V/ TTY; Blasting Contract Man , [facility] [place] [facility] -low income hearing aid assistance www.[facility] medical centerfoundation.org [facility]vel Hearing Care , Alexia HELP AT HOME CAREGIVER SUPPORT: In Home Support Services (Must have Medi-Ana to be eligible) *Ask for a list of agencies that provide services to assist with care in the home. Local Senior Centers also have listings of care providers. HOME SAFETY MODIFICATIONS AND EQUIPMENT: Senior centers have additional referrals. [place] Housing and Community Investment Dept. Handyworker Program (low income) or Visit http://hcidla.[facility].org/fwn-nybtgw-vi for more information National Seating and Mobility and/or ; Forever Active www.foreverMoPub.Everest Stay Home Safe www.Stayhomesafe.com LIFE ALERT RESPONSE SYSTEM: Kl[employer] Services 464-980-3776 www. Solar Nation Life Alert 163-632-8690 www.Curioos.Everest Life Station 736-036-2144 www.INFUSD.Everest Safe Return 310-895-9093 www.8villages.or/safereturn Cell Phones for Seniors www.Novitas MEALS AND FOOD PROGRAMS: [place] Meals on Wheels 607-409-2400 [place] Meals on Wheels [phone] [facility] [phone] [place] to the Homebound 827-145-8157 [place] to the Homebound [phone] [facility] to the Homebound [phone] [facility] to the Homebound [phone] [facility] [phone] [facility] 719-896-7785 ONE Generation [phone] [facility] [phone] [facility] [phone] Meals on Wheels 260-503-9190 For all ages: $6.85/ meal w side. Delivered M-F from 10 am-1pm. Application and payment is done over the phone. Frozen meals available for weekends. Emergency Food [facility] [phone] [facility] [place] Auto Wheel Alignment Specialist [phone] [facility] [phone] [facility]- Brown bag lunches [phone] [facility] [phone] MEAL/GROCERY DELIVERY PROGRAMS: [facility] Gourmet Meals [phone]- [facility] [phone]- [facility] Magic Kitchen [phone] Moms Meals [phone] (ask Rendon for Discount Select grocery stores may provide delivery. MEDICAL INSURANCE SUPPORT SERVICES: Center for Health Care Rights 486-635-6451 Health Insurance Counseling/Advocacy Programs (HICAP)-Must have Medicare. Offers counseling for Medi-Ana eligibility 855-313-5741 Department of Public Auto Wheel Alignment Specialist 563-726-3760 www.[facility].ca.gov Medicare 855-977-2823 www.socialsecurity.org Social Security 663-421-2246 SENIOR ACTIVITY PROGRAMS: *Contact a local senior center, adult school, recreation facility or community college for education, fitness, recreation, and social programs. Aquatic Therapy and Adapted Exercise programs through [facility] 968-388-3936 [facility] 833-907-2339 www.[facility]/encore U- Senior Friends 595-992-8300 [place] Senior Programs 335-544-3146 www.oasisnet.org Suddenly 65 www.nhbtxyts39.Everest SENIOR CENTERS: [facility] [phone] [facility] Ericson [phone] [facility] [phone] [facility] [phone] [facility] [phone] [facility] [phone] [facility] [phone] [facility] [phone] One [facility] [phone] [facility] [phone] [facility] [phone] [facility] [phone] [facility] [phone] TRANSPORTATION: Local [facility] may have applications for transportation programs and additional resources. ACCESS Services 742-491-6850 Transportation for seniors and disabled persons 7 days a week requiring 254 hr. advance reservation. Must apply and register for program manav eligible. [employer] Services 451-008-4725 or 513-218-3292 Transportation for seniors and persons with ADA card/metro disabled card in the [facility]. M-F only. Must register for services. ONE GENERATION 224-658-8783 Serves 65 years + in conjunction with city ride program. Must be registered with both programs. A to B Transport [phone] Provides wheelchair/gurney van service. Adult Medical Transport [phone] Accepts [facility]-ana with prior authorization. Care Van 284-580-5771 Provides wheelchair Transport. [facility] Wide Transportation [phone] Provides gurney service Gentle Care [phone] Gurney Transport. [facility] Town Transportation [phone] wheelchair & gurney transport D Transportation [phone] wheelchair & gurney transport [place] Non-Emergency Transport [phone] wheelchair & gurney transport Independent Living Center [phone] Short Term Transportation primarily for adults with disabilities on social security income. Nominal fee may apply and a reservation is required. [facility] Cab [phone] or [phone] [facility] [phone] [place] [address] Services -[phone] For additional programs & services VETERANS RESOURCES: Submissions for Aid and Attendance should be done directly to Federal VA office locatd at : [address] [facility] [phone] National Caregiver Support Line [phone] [facility] Field Office [phone] [place] Department of Affairs [phone] Pension Information [phone]
[2021-08-06] MEDS ORDERED: DOCUSATE SODIUM 100 MG CAPSULE PO SCH (11:22)
[2021-08-06] MEDS: ONDANSETRON HCL/PF 4 MG/2 ML VIAL IVP PRN (12:12)
[2021-08-06] MEDS ORDERED: ALBUTEROL FS 2.5 MG/3 ML VIAL.NEB NEB SCH (13:30)
[2021-08-06 16:38] VITALS: BP 125/72
[2021-08-06] MEDS ORDERED: TIMOLOL MAL/DORZOLAM HCL OPHTH 10 ML BOTTLE LEFTEYE SCH (17:00)
--- NOTE | 2021-08-06 19:28 | NUR ---
MS RN CLOSING NOTE PT IN BED AWAKE WATCHING TV. A/O X4 AND ABLE TO MAKE NEEDS KNOWN. ON RA, TOLERATING WELL. BREATHING EVEN AND UNLABORED. NOT IN ANY SIGN OF DISTRESS. IV SITE ON LFA G #20 INTACT AND PATENT. ALL NEEDS ATTENDED. PT IS DISCHARGED, WAITING FOR THE TRANSPORTATION FOR GAS PUMPING STATION HELPER GOING TO [facility]. SAFETY MEASURES IN PLACE: BED IN LOWEST AND LOCKED POSITION, SIDE RAILS UPx2, CALL LIGHT WITHIN REACH. ENDORSED TO SECURITY SOLUTIONS ARCHITECT NURSE OF DISCHARGED.
--- NOTE | 2021-08-06 19:30 | NUR ---
MS RN OPENING NOTE RECEIVED PATIENT IN BED, A/OX4. NO S/S OF APPARENT DISTRESS ON ROOM AIR. DENIES PAIN AT THIS TIME. NO FLUIDS RUNNING AT THIS TIME. PATIENT FOR DISCHARGE-- [facility].
--- NOTE | 2021-08-06 19:42 | NUR ---
MS RN NOTE TRIED CALLING [employer] MULTIPLE TIMES. NO ANSWER.
--- NOTE | 2021-08-06 20:24 | NUR ---
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 NO S/S OF APPARENT DISTRESS ON ROOM AIR. DENIES PAIN AND DISCOMFORT. ID BAND DISCARDED. IV ACCESS TAKEN OFF. DISCHARGE PAPERS SIGNED AND GIVEN TO THE EMT PERSONNEL. BELONGINGS CLAIMED AND SIGNED BY PATIENT. ALL RESOURCE PAPERS WITH PATIENT. REPORT GIVEN TO JACKIE ARRIAGA AT [facility]. PATIENT GOING IN RM 315.
== END 2021-08-06 20:25 | DRG 544 ==
LOC: ER 15:36 → MED 19:32
PROVIDERS: ADMIT Nurse Practitioner Acute Care; ATTEND Internal Medicine
DX: M80.0AXA Age-related osteoporosis with current pathological fracture, other site, initial encounter for fracture (principal); W01.0XXA Fall on same level from slipping, tripping and stumbling without subsequent striking against object, initial encounter; M06.9 Rheumatoid arthritis, unspecified; H40.9 Unspecified glaucoma; I10 Essential (primary) hypertension; Z87.891 Personal history of nicotine dependence; Z90.710 Acquired absence of both cervix and uterus; K52.3 Indeterminate colitis; Z96.642 Presence of left artificial hip joint; Z87.898 Personal history of other specified conditions; Z20.822 Contact with and (suspected) exposure to COVID-19; Y93.9 Activity, unspecified; Y92.009 Unspecified place in unspecified non-institutional (private) residence as the place of occurrence of the external cause
CPT/HCPCS: 36415; 71045-TC; 72170-TC; 73502; 73552; 80048-TC; 80053-TC; 80061-TC; 83540-TC; 83735-TC; 84100-TC; 84443-TC; 85025-TC; 85730-TC; 87081-TC; 97116-TC; 97530-TC; C9803; G0378; J1650; J2270; J2405; J7500; J7512

== ENCOUNTER 2023-08-14 15:09 | Emergency (ER) | payer MEDICARE, BC ==
[~2023-08-14] VITALS: Ht 152.4 cm; Wt 58.1 kg
[~2023-08-14 15:09] MED LIST changes: -ADAL40PE SQ; +ALPR0.255 PO; -AZAT50TA18 PO; +CALC500T52 PO; -ENOX40DI SQ; +ESTR10TA VG; -ESTR10TA4 VG; +FLUT1DIS5 PO; +HYDR-4279 PO; -METH1TAB PO; -PRED5TAB PO; +SERT50TA12 PO; +VEDO300V IV; +VITA1TAB56 PO
[2023-08-14] MEDS ORDERED: OXYC-128 PO ×2 (16:30→16:52)
[2023-08-14] MEDS ORDERED: MORPHINE SULFATE INJ 2 MG/ML DISP.SYRIN ONE (17:25)
[2023-08-14] MEDS: MORPHINE SULFATE INJ 2 MG/ML DISP.SYRIN IM ONE (17:29)
[2023-08-14 17:40] VITALS: BP 132/77; TEMP 97.9; O2SAT 98
== END 2023-08-14 17:41 | disposition home or self-care (01) ==
LOC: ER 15:12
DX: S42.294A Other nondisplaced fracture of upper end of right humerus, initial encounter for closed fracture (principal); I10 Essential (primary) hypertension; Z90.49 Acquired absence of other specified parts of digestive tract; Z90.710 Acquired absence of both cervix and uterus; Z88.8 Allergy status to other drugs, medicaments and biological substances; W01.0XXA Fall on same level from slipping, tripping and stumbling without subsequent striking against object, initial encounter; Y93.89 Activity, other specified; Y92.89 Other specified places as the place of occurrence of the external cause; Y99.8 Other external cause status
CPT/HCPCS: 29105; 73030; 73060; 96372; 99284; J2270